=== PATIENT | female | born 1945 | race Caucasian/White ===

== ENCOUNTER 2018-01-11 11:10 | Outpatient (CLI) | payer MEDICARE, OTHER | END 2018-01-11 11:11 | disposition home or self-care (01) | LOC: DI 11:10 | PROVIDERS: ATTEND Internal Medicine | DX: R01.1 Cardiac murmur, unspecified (principal); I10 Essential (primary) hypertension | CPT/HCPCS: 93306 ==

== ENCOUNTER 2019-01-07 10:19 | Outpatient (CLI) | payer MEDICARE, OTHER ==
--- NOTE | 2019-01-07 14:39 | XRAY Report ---
Reason: PAIN IN LEFT ANLE AND JOINTS LEFT FOOT Procedure Date: 01/07/2019 Accession Number: [id number] / [id number] Procedure: XRS - Ankle 3 View LT CPT Code: FULL RESULT: EXAM: LEFT ANKLE RADIOGRAPHY EXAM DATE: 01/07/2019 10:38 AM. CLINICAL HISTORY: PAIN IN LEFT ANLE AND JOINTS LEFT FOOT. COMPARISON: None. TECHNIQUE: 3 views. FINDINGS: Bones: Small plantar and posterior calcaneal spurs. No fractures or bone lesions. Joints: Minimal degenerative change tibiotalar articulation. The ankle mortise is normally aligned. Soft Tissues: Mild lateral soft tissue swelling. IMPRESSION: Mild left ankle degenerative change without superimposed acute finding. RADIA
--- NOTE | 2019-01-07 14:47 | XRAY Report ---
Reason: KNEE PAIN BILATERAL Procedure Date: 01/07/2019 Accession Number: [id number] / [id number] Procedure: XRS - Foot 3 View LT CPT Code: FULL RESULT: EXAM: LEFT FOOT RADIOGRAPHY EXAM DATE: 01/07/2019 10:38 AM. CLINICAL HISTORY: KNEE PAIN BILATERAL. COMPARISON: ANKLE 3 VIEW LT 01/07/2019 10:46 AM. TECHNIQUE: 3 views. FINDINGS: Bones: No acute fractures or bone lesions. Well-corticated bony density adjacent to the medial head of the third middle phalanx may be related to old trauma. Small calcaneal spurs. Joints: Minor degenerative changes No subluxations. Soft Tissues: Mild soft tissue prominence over the lateral malleolus. Soft tissue swelling. IMPRESSION: Minor degenerative change left foot radiography. No acute findings. RADIA
== END 2019-01-07 10:20 | disposition home or self-care (01) ==
LOC: DI.S 10:19
PROVIDERS: ATTEND Nurse Practitioner Family
DX: M19.072 Primary osteoarthritis, left ankle and foot (principal)

== ENCOUNTER 2022-11-11 09:17 | Outpatient (CLI) | payer MEDICARE, OTHER ==
[2022-11-11 15:09] LABS: BASOPHILS % (AUTO) 0.5 %; EOSINOPHILS # (AUTO) 0.2 10^3/uL (0.0-0.7); EOSINOPHILS % (AUTO) 4.4 %; HCT - HEMATOCRIT 41.2 % (37.0-47.0); HGB - HEMOGLOBIN 13.1 g/dL (12.0-16.0); LYMPHOCYTES # (AUTO) 1.5 10^3/uL (1.5-3.5); LYMPHOCYTES % (AUTO) 34.7 %; MEAN CORPUSCULAR HGB CONC 31.8 g/dL (32.0-36.0); MEAN CORPUSCULAR VOLUME 97.4 fL (81.0-99.0); MEAN PLATELET VOLUME 11.3 fL (7.9-10.8); MONOCYTES # (AUTO) 0.4 10^3/uL (0.0-1.0); MONOCYTES % (AUTO) 8.6 %; NEUTROPHILS # (AUTO) 2.2 10^3/uL (1.5-6.6); NEUTROPHILS % (AUTO) 51.8 %; PLT - PLATELET COUNT 221 10^3/uL (130-450); RED BLOOD COUNT 4.23 10^6/uL (4.20-5.40); RED CELL DISTRIBUTION WIDTH 12.8 % (12.0-15.0); WHITE BLOOD COUNT 4.3 x10^3/uL (4.8-10.8)
[2022-11-11 15:24] LABS: ALBUMIN 4.3 g/dL (3.2-5.5); ALBUMIN/GLOBULIN RATIO 1.9 (1.0-2.2); ALKALINE PHOSPHATASE 82 IU/L (42-121); ALT ALANINE AMINOTRANSFERASE 18 IU/L (10-60); AST ASPARTATE AMINOTRANSFERASE 20 IU/L (10-42); BILIRUBIN,TOTAL 0.7 mg/dL (0.2-1.0); BUN - BLOOD UREA NITROGEN 19 mg/dL (6-20); CALCIUM 9.7 mg/dL (8.5-10.3); CARBON DIOXIDE - CO2 30 mmol/L (21-32); CHLORIDE 106 mmol/L (101-111); CHOL/HDL RATIO 3.2 (<4.4); CHOLESTEROL 194 mg/dL; CREATININE 0.6 mg/dL (0.6-1.3); GFR - MDRD 97 (>89); GLUCOSE 97 mg/dL (74-104); HDL CHOLESTEROL 61 mg/dL; LDL CHOLESTEROL,CALCULATED 118 mg/dL; LDL/HDL RATIO 1.9 (<4.4); POTASSIUM 4.5 mmol/L (3.5-4.5); SODIUM 139 mmol/L (135-145); TOTAL PROTEIN 6.6 g/dL (6.4-8.9); TRIGLYCERIDES 77 mg/dL (48-352); VLDL CHOLESTEROL 15 mg/dL
--- NOTE | 2022-11-11 22:35 | XRAY Report ---
PROCEDURE: Hip w/Pelvis 2-3V RT INDICATIONS: XRAY RIGHT HIP TECHNIQUE: AP pelvis with lateral view(s) of the right hip(s). COMPARISON: None. FINDINGS: Bones: No fractures or dislocations. No suspicious bony lesions. Soft tissues: No suspicious soft tissue calcifications or masses. IMPRESSION: No acute bony abnormality. Reviewed by: Anju Kohler MD on 11/11/2022 10:34 PM PDT Approved by: Anju Kohler MD on 11/11/2022 10:34 PM PDT Station ID: [id number]
== END 2022-11-11 09:18 | disposition home or self-care (01) ==
LOC: DI.S 09:17
PROVIDERS: ATTEND Internal Medicine
DX: M19.072 Primary osteoarthritis, left ankle and foot (principal); M17.0 Bilateral primary osteoarthritis of knee; I10 Essential (primary) hypertension; Z13.220 Encounter for screening for lipoid disorders
CPT/HCPCS: 36415; 80053; 80061; 83721; 85025

== ENCOUNTER 2022-12-15 08:00 | Outpatient (CLI) | payer MEDICARE, OTHER ==
--- NOTE | 2022-12-15 11:38 | XRAY Report ---
PROCEDURE: Knee 4 View BILAT INDICATIONS: BILAT KNEE PAIN TECHNIQUE: 4 views of the bilateral knee(s) were acquired. COMPARISON: None. FINDINGS: Bones: No fractures or dislocations. No suspicious bony lesions. Tricompartmental joint space marlene rowing with associated osteophytosis. Early bony deformity of the medial tibial compartment on the ri ght. Soft tissues: No knee joint effusion. No suspicious soft tissue calcifications or masses. IMPRESSION: Moderate tricompartmental osteoarthritis. Kellgren-Karri scale of osteoarthritis: 2-3. Reviewed by: Trevor Cheung on 12/15/2022 11:37 AM PDT Approved by: Trevor Cheung on 12/15/2022 11:37 AM PDT Station ID: [id number]
== END 2022-12-15 23:59 | disposition home or self-care (01) ==
LOC: DI.WOS 08:00
PROVIDERS: ATTEND Physician Assistant Surgical
DX: M17.0 Bilateral primary osteoarthritis of knee (principal)

== ENCOUNTER 2022-12-29 12:32 | Outpatient (CLI) | payer MEDICARE, OTHER ==
--- NOTE | 2022-12-29 15:06 | DEXA Report ---
PROCEDURE: Dexa Spine and/or Hip INDICATIONS: MENOPAUSAL TECHNIQUE: Dual energy x-ray absorptiometry (DXA) was performed on a [employer] System. Regions measur ed are the AP Spine, femoral neck, and if needed forearm. COMPARISON: None. FINDINGS: Lumbar Spine: Bone Mineral Density 0.860 g/cm/cm,T score -2.7. Left Femoral Neck: Bone Mineral Density 0.673 g/cm/cm, T score -2.6. Left Hip: Bone Mineral Density 0.683 g/cm/cm,T score -2.6. (T score greater or equal to -1.0: NORMAL) (T score from -1.1 to -2.4: OSTEOPENIA) (T score less than or equal to -2.5 to: OSTEOPOROSIS) Impression: By WHO criteria, this patient has osteoporosis. Patients with diagnosis of osteoporosis or osteopenia should have regular bone mineral density assess ment. For those eligible for Medicare, routine testing is allowed once every 2 years. Testing frequ ency can be increased for patients who have rapidly progressing disease or for those who are receivin g medical therapy to restore bone mass. Reviewed by: Trevor Cheung on 12/29/2022 3:05 PM PDT Approved by: Trevor Cheung on 12/29/2022 3:05 PM PDT Station ID: [id number]
== END 2022-12-29 12:33 | disposition home or self-care (01) ==
LOC: DI 12:32
PROVIDERS: ATTEND Internal Medicine
DX: M81.0 Age-related osteoporosis without current pathological fracture (principal)

== ENCOUNTER 2023-01-25 13:32 | Outpatient (CLI) | payer MEDICARE, OTHER ==
--- NOTE | 2023-01-25 14:21 | XRAY Report ---
PROCEDURE: Thoracic Spine 3 View INDICATIONS: OSTEOPOROSIS TECHNIQUE: 3 views of the thoracic spine were acquired. COMPARISON: None. FINDINGS: Bones: No fractures or dislocations. There is some moderate diffuse degenerative disc disease noted throughout the patient's thoracic spine. There is some mild physiologic wedging involving the mid th oracic spine. Soft tissues: No paravertebral stripe thickening. IMPRESSION: 1. No evidence for acute osseous abnormality involving the thoracic spine. 2. Moderate diffuse degenerative disc disease noted throughout. Reviewed by: Destin Jhaveri MD on 01/25/2023 2:20 PM PST Approved by: Destin Jhaveri MD on 01/25/2023 2:20 PM PST Station ID: [id number]
--- NOTE | 2023-01-25 16:36 | XRAY Report ---
PROCEDURE: Lumbar Spine Complete INDICATIONS: OSTEOPOROSIS TECHNIQUE: 4 views of the lumbar spine were acquired. COMPARISON: None. FINDINGS: Bones: 5 [id number] vertebrae are present. There is normal bony alignment. No vertebral body compression fractures. No suspicious bony lesions. There is is moderate diffuse degenerative disc di sease noted at all levels. Soft tissues: Overlying bowel gas pattern is normal. No suspicious soft tissue calcifications. IMPRESSION: 1. No evidence for acute osseous abnormality involving the patient's lumbar spine. 2. Moderate diffuse degenerative disc disease noted at all levels. Reviewed by: Destin Jhaveri MD on 01/25/2023 4:34 PM PST Approved by: Destin Jhaveri MD on 01/25/2023 4:34 PM PST Station ID: [id number]
== END 2023-01-25 13:33 | disposition home or self-care (01) ==
LOC: DI.S 13:32
PROVIDERS: ATTEND Internal Medicine
DX: M81.0 Age-related osteoporosis without current pathological fracture (principal); M17.11 Unilateral primary osteoarthritis, right knee; M25.559 Pain in unspecified hip; M51.36 Other intervertebral disc degeneration, lumbar region; M51.34 Other intervertebral disc degeneration, thoracic region

== ENCOUNTER 2023-02-23 08:51 | Outpatient (CLI) | payer MEDICARE, OTHER ==
--- NOTE | 2023-02-23 13:08 | MRI Report ---
PROCEDURE: HIP WO - RT INDICATIONS: RIGHT HIP TENDINITIS TECHNIQUE: Noncontrast coronal T1 spin echo and STIR through the bony pelvis. Coronal and axial T2 fast spin ec ho with fat saturation, sagittal T1 spin echo, and oblique axial T2 fast spin echo with fat saturatio n through the hip. COMPARISON: None. FINDINGS: Image quality: Excellent. Bones and joints: [id number] bilateral hip joint osteophytic changes are seen with superior angelo nt space narrowing and subchondral sclerosis. There is no marrow edema. No intraosseous lesions or fr actures. No avascular necrosis of the femoral heads. The visualized lower lumbar spine appears norm ally aligned. Tendons: Tendinosis and low-grade partial-thickness involving distal right gluteus medius tendon at i ts insertion on greater trochanter is seen. Distal right gluteus medius and minimus tendinosis is als o seen.. The iliopsoas tendon appears intact, without adjacent bursal fluid collections. Tendinosis involving conjoined tendon origin of semitendinosus and biceps femoris tendons at ischial tuberosity is seen. Labrum and cartilage: The acetabular labrum appears intact in the absence of intra-articular contras t. Diffuse thinning of cartilage over right femoral head is noted. The alpha angle of the femur is wi thin normal limits at less than 55 degrees. Soft tissues: Visualized muscles demonstrate normal bulk and internal signal. The proximal sciatic neurovascular bundle appears normal adjacent to the hamstring tendons. No free pelvic fluid. Bladde r wall thickness is normal. Genitourinary structures and bowel loops appear normal where visualized. IMPRESSION: 1. Mild to moderate bilateral hip joint osteoarthritis. No fracture or dislocation. No evidence of av ascular necrosis. 2. Distal right gluteus medias tendinosis and low-grade partial-thickness tear. Distal right gluteus minimus tendinosis. Tendinosis also seen involving chondral tendon origin of semitendinosus and bicep s femoris tendons at ischial tuberosity. No other muscle or tendon signal abdomen maladies. 3. No evidence of focal right hip labral tear. Reviewed by: Dave Valiente MD on 02/23/2023 1:07 PM PST Approved by: Dave Valiente MD on 02/23/2023 1:07 PM PST Station ID: [id number]
== END 2023-02-23 08:52 | disposition home or self-care (01) ==
LOC: DI 08:51
PROVIDERS: ATTEND Internal Medicine
DX: M67.853 Other specified disorders of tendon, right hip (principal); R26.9 Unspecified abnormalities of gait and mobility; M17.11 Unilateral primary osteoarthritis, right knee; M25.569 Pain in unspecified knee; M16.0 Bilateral primary osteoarthritis of hip